=== PATIENT | female | born 1970 | race Caucasian/White ===

== ENCOUNTER → 2017-05-17 | Outpatient (CLI) | payer BC ==
--- NOTE | 2017-05-17 15:48 | KCIC ---
DATE: 05/17/2017 EXAM: MAMMO [facility] HISTORY: Palpable lump in the upper outer right breast. COMPARISON: 09/24/2015 and 01/09/2014. This study was interpreted with the benefit of Computerized Aided Detection (CAD). FINDINGS: Rounded masslike density is identified in the upper outer aspect of the right breast, presumably a cyst. There are multiple well-defined lesions in the right breast consistent with multiple cysts. No suspicious calcifications are seen. The axillae are unremarkable. Impression: Rounded masses are identified in the upper outer right breast at the area of palpable abnormality, presumably cysts. Further evaluation with ultrasound is recommended. Right breast ultrasound: Sonographic interrogation of the area of palpable abnormality was performed. A cyst at the 11:00 location measures 2.6 x 2.1 x 1.1 cm. A cyst at the 10:00 location is 1.4 x 1.3 x 0.8 cm. No solid lesions are seen. Breast Density: HETERO The breast parenchyma is heterogeneously dense, which could reduce sensitivity of mammography. Breast parenchyma level C. IMPRESSION: Simple cysts at the 10 and 11:00 location of the right breast, corresponding to the palpable abnormality. The patient may return to routine annual screening mammography. BI-RADS CATEGORY: 2 BENIGN FINDING(S) RECOMMENDED FOLLOW-UP: 12M 12 MONTH FOLLOW-UP PQRS compliance statement: Patient information was entered into a reminder system with a target due date 05/17/2018 for the next mammogram. Mammography is a sensitive method for finding small breast cancers, but it does not detect them all and is not a substitute for careful clinical examination. A negative mammogram does not negate a clinically suspicious finding and should not result in delay in biopsying a clinically suspicious abnormality. "Our facility is accredited by the [employer] Mammography Program."
== END | disposition home or self-care (01) ==
LOC: KCIC MAMMO 13:56
PROVIDERS: ATTEND Obstetrics & Gynecology
DX: N63.11 Unspecified lump in the right breast, upper outer quadrant (principal); N60.01 Solitary cyst of right breast
CPT/HCPCS: 76641; G0204; G0279; 77062; 77066